=== PATIENT | male | born 1965 | race Caucasian/White ===

== ENCOUNTER 2021-08-16 09:36 | Outpatient (REF) | payer MEDICAID, SELFPAY ==
--- NOTE | ~2021-08-16 | XR_ITS ---
EXAMINATION: XR HAND, RIGHT XR HAND, LEFT CLINICAL INFORMATION: Polyarthralgia this COMPARISON: None TECHNIQUE: 3 views of each hand FINDINGS: Left hand: No fracture or dislocation. Fixed flexion at the second and third distal interphalangeal joints. There is significant associated joint space narrowing with osteophyte formation. Additional joint space narrowing seen throughout the remaining interphalangeal joints with small osteophytes. Moderate degenerative change of the first carpometacarpal joint with prominent adjacent soft tissue calcifications. Degenerative changes also noted at the triscaphe joint. No osseous erosion. Mild soft tissue swelling at the second and third digits. Right hand: No fracture or dislocation. Flexion at the third digit distal interphalangeal joint where there is narrowing and osteophyte formation. Additional narrowing throughout the interphalangeal joints with osteophytes noted. Likely chronic healed fracture at the proximal shaft of the fourth metacarpal. Degenerative change of the triscaphe joint and first carpometacarpal joint. No osseous erosions. Second digit soft tissue swelling. XR/XR hand RT min 3V IMPRESSION: Advanced arthritic changes throughout both hands as above.
--- NOTE | ~2021-08-16 | XR_ITS ---
EXAMINATION: XR HAND, RIGHT XR HAND, LEFT CLINICAL INFORMATION: Polyarthralgia this COMPARISON: None TECHNIQUE: 3 views of each hand FINDINGS: Left hand: No fracture or dislocation. Fixed flexion at the second and third distal interphalangeal joints. There is significant associated joint space narrowing with osteophyte formation. Additional joint space narrowing seen throughout the remaining interphalangeal joints with small osteophytes. Moderate degenerative change of the first carpometacarpal joint with prominent adjacent soft tissue calcifications. Degenerative changes also noted at the triscaphe joint. No osseous erosion. Mild soft tissue swelling at the second and third digits. Right hand: No fracture or dislocation. Flexion at the third digit distal interphalangeal joint where there is narrowing and osteophyte formation. Additional narrowing throughout the interphalangeal joints with osteophytes noted. Likely chronic healed fracture at the proximal shaft of the fourth metacarpal. Degenerative change of the triscaphe joint and first carpometacarpal joint. No osseous erosions. Second digit soft tissue swelling. XR/XR hand LT min 3V IMPRESSION: Advanced arthritic changes throughout both hands as above.
== END 2021-08-16 09:37 | disposition home or self-care (01) ==
LOC: HO.XRAY 09:36
PROVIDERS: Visit Provider Internal Medicine
DX: M13.0 Polyarthritis, unspecified (principal)
CPT/HCPCS: 73130

== ENCOUNTER 2023-10-17 20:44 | Emergency (ER) | payer MEDICAID, SELFPAY ==
--- NOTE | ~2023-10-17 | XR_ITS ---
EXAMINATION: CHEST 2 VIEWS CLINICAL INFORMATION: hypoxia, cough. COMPARISON: 11/07/2017. TECHNIQUE: PA and lateral views of the chest obtained. FINDINGS: Lungs well-expanded with some right-sided volume loss and chronic postinfectious/postinflammatory scarring in the right lung apex. No superimposed effusion, edema, or pneumothorax. Cardiac and mediastinal silhouettes otherwise within normal limits for size. No acute bony abnormality. XR/XR chest 2V IMPRESSION: Chronic postinfectious/postinflammatory changes in the right lung apex. No acute superimposed airspace disease.
--- NOTE | ~2023-10-17 | XR_ITS ---
EXAMINATION: XR KNEE, LEFT CLINICAL INFORMATION: Pain COMPARISON: None available. TECHNIQUE: Four views of the left knee. FINDINGS: Moderate size knee joint effusion. Tricompartmental degenerative changes are seen with loss of joint space more so in the lateral compartment. No acute fracture or dislocation. No bony destructive lesions. Extensive vascular calcification XR/XR knee LT 3V IMPRESSION: Tricompartmental degenerative changes with moderate size knee joint effusion. No acute fracture or dislocation.
[2023-10-17 21:17] VITALS: BP 104/62; PULSE 80; RESP 16; TEMP 37; O2SAT 89; BMI 23.2
[2023-10-17 22:07] LABS: Influenza A PCR NEGATIVE (Negative); Influenza B PCR NEGATIVE (Negative); Resp Syncy Virus RNA Qual PCR NEGATIVE (Negative); SARS COV2 PCR INHOUSE NEGATIVE (Negative)
== END 2023-10-18 01:22 | disposition left against medical advice (07) ==
PROVIDERS: Emergency Provider Emergency Medicine
DX: M25.562 Pain in left knee (principal); Z20.822 Contact with and (suspected) exposure to COVID-19; Z20.828 Contact with and (suspected) exposure to other viral communicable diseases
CPT/HCPCS: 0241U; 71046; 73562; 99281; 99283

== ENCOUNTER 2024-12-17 10:32 | Emergency (ER) | payer OTHER, SELFPAY ==
--- NOTE | ~2024-12-17 | XR_ITS ---
CLINICAL HISTORY: fall 3 view right shoulder Comparison: None Findings: Nondisplaced fracture involving the greater tuberosity of the right humerus. No erosions. No radiopaque foreign body. IMPRESSION: Nondisplaced right greater tuberosity fracture. No dislocation. This document has been electronically signed by: Chuck Rm MD on 12/17/2024 12:25:39
--- NOTE | ~2024-12-17 | XR_ITS ---
CLINICAL HISTORY: low O2 2 views chest Comparison: CR/SR - XR CHEST 2V - 10/17/23 22:16 EST Findings: Cardiac and mediastinal contours are normal. Mild interstitial prominence with scattered peribronchial thickening. Chronic changes of the right lung apex. No focal consolidation. No effusion. No pneumothorax. No acute osseous finding. Impression: Mild interstitial prominence with scattered peribronchial thickening. No focal consolidation. This document has been electronically signed by: Chuck Rm MD on 12/17/2024 12:25:29
--- NOTE | ~2024-12-17 | XR_ITS ---
CLINICAL HISTORY: pain s p injury 4 view right knee Comparison: None Findings: Bones intact. No dislocations. Linear calcifications along the quadriceps tendon insertion. No significant joint effusion. No radiopaque foreign body. Diffuse vascular calcification. IMPRESSION: 1. No acute findings. This document has been electronically signed by: Chuck Rm MD on 12/17/2024 12:28:53
[2024-12-17 11:32] VITALS: BP 118/60; PULSE 69; RESP 18; TEMP 36.8; O2SAT 92; BMI 25.7
--- NOTE | 2024-12-17 11:32 | ED.UPPEXIN ---
HPI - Extremity Injury (Upper) General Chief Complaint: Extremity Injury, Upper Stated Complaint: r shoulder and r knee injury Time Seen by Provider: 12/17/24 12:51 Source: patient, RN notes reviewed and old records reviewed Mode of arrival: ambulatory History of Present Illness ED Provider: Carolynn Mahmood PA-C HPI narrative: 59-year-old male no significant past medical history presenting to the ED complaining of right shoulder pain s/p mechanical slip and fall on ice 1 week ago. Reports pain with ROM/limited ROM secondary to pain. Also reports right knee pain s/p kicking carpet a few weeks ago. Is currently on methadone, last dose this morning. Denies head trauma or LOC during fall or anticoagulation use. Denies numbness, tingling, weakness, CP, neck pain Related Data Allergies Allergy/AdvReac Type Severity Reaction Status Date / Time No Known Allergies Allergy Verified 12/17/24 11:34 Review of Systems Review of Systems: Yes all other systems are reviewed and are negative Constitutional: Constitutional: Reports as per [facility] Past Medical History Attestation statement: The following information was validated with the patient. Source: old records reviewed Social History Social History Advance Directives: No Advance Directives Information Provided: Yes Physical Exam Vital Signs: Vital Signs: Last Vital Signs Temp 98.3 F 12/17/24 13:11 Pulse 69 12/17/24 13:11 Resp 18 12/17/24 13:11 BP 118/60 12/17/24 13:11 Pulse Ox 97 12/17/24 13:11 O2 Del Method Room Air 12/17/24 13:11 BMI result Body Mass Index 25.7 Const: General: cooperative, healthy appearing and no acute distress Orientation/consciousness: patient oriented x3 Limitations: no limitations HEENT: Head: Yes normal to inspection and Yes atraumatic Ears: hearing grossly normal bilaterally General nose exam: Normal external nose present Face and sinus: Yes normal facial exam Eyes: General: appearance normal, both eyes and all related structures EOM: EOMs intact bilaterally Neck: Neck: Yes normal visual inspection and Yes no meningeal signs Resp: Effort & Inspection: normal respiratory effort and no respiratory distress Auscultation: clear to auscultation bilaterally Cardio: Rate: regular rate Heart sounds: S1 normal heart sound present and S2 normal heart sound present Skin: Rashes: no rashes Wounds: no wounds Neuro: General: patient oriented x3, tone normal and no meningeal signs Cranial nerves: Yes CN's II-XII intact bilaterally Gait exam (Neuro): Normal gait present Extrem: Other: Right shoulder without noted deformity. + tender to palpation greatest to anterior aspect. ROM limited secondary to pain. Neurovascularly intact distally. Right knee without noted deformity. Mildly tender. Full range of motion intact. General: Yes normal to inspection Course Course Course Narrative: This is a Rapid Medical Exam performed in triage by Carolynn Mahmood PA-C. Full HPI, ROS and PE to be performed by primary ED provider. 59-year-old male presenting to the ED c/o R shoulder pain s/p mechanical trip & fall on ice 1 week ago. Admits to taking Methadone daily, last dose this morning. Also reports to kicking carpet a few weeks ago and right knee pain PE: O2 92% on RA, right shoulder with mild tenderness, limited ROM secondary to pain, neurovascularly intact Plan: X-rays 1254--XR knee RT 3V IMPRESSION: 1. No acute findings. XR shoulder RT min 2V IMPRESSION: Nondisplaced right greater tuberosity fracture. No dislocation. > sling applied. Will need to follow up with Orthopedics XR chest 2V Impression: Mild interstitial prominence with scattered peribronchial thickening. No focal consolidation. Results discussed with patient including worrisome signs and symptoms and strict return precautions, and when to return to the emergency department. They verbalized understanding and feel safe for discharge at this time. Medical Decision Making Medical Decision Making [facility] Narrative: 59-year-old male no significant past medical history presenting to the ED complaining of right shoulder pain s/p mechanical slip and fall on ice 1 week ago. On exam vital signs stable, NAD, nontoxic appearing, physical exam as noted above. Concern for fracture vs strain/sprain. Low suspicion for ACS, PE, pneumonia Plan: X-rays Please refer to course for remaining clinical decision making, interpretation of labs/imaging results, and discussions with consultants and/or family members. Differential Diagnosis Differential Diagnoses: The differential diagnosis associated with the presentation includes As above Admission/Observation Consideration of admission/observation: Escalation of care including admission/observation considered Lab Data [facility] Lab Attestation statement: I reviewed the patient's lab results. Independent Interpretation I performed an independent interpretation of an: Plain X-Ray Radiology Impression Discussion of test interpretation with radiology: I have reviewed the radiologist's reading. External Record Review External record reviewed: Inpatient record, Office record, Outpatient record, Prior outpatient labs, Prior outpatient radiology, Primary care record and Outside ED record Tests considered The following testing was considered but not selected: As above Prescription Management I considered prescription management with: Pain Medication Chronic Conditions Patient?s care impacted by: Other Social Determinants Patient?s care significantly limited by Social Determinants of Health including: Other Social Determinant of Health Procedures Orthopedic Splinting/Casting Injury #1: Side: right Upper Extremity Injury Location: shoulder Upper Extremity Immobilizer: sling/shoulder immobilizer Discharge Plan Discharge Clinical Impression: Fracture of greater tuberosity of humerus Patient Disposition: Home, Self-Care Instructions: Proximal Humerus Fracture (ED) Additional Instructions: You have a fracture of your greater tuberosity of your right shoulder Please wear sling at all times, you may only take off to shower and sleep You need to follow-up with ad operations specialist in 1 week, please call to make an appointment Ice Take Tylenol and ibuprofen for pain If pain persists or worsens/becomes unbearable, you have numbness or weakness to extremity return to the ED Ref[place]: [facility] [place] Group] - 1 week Interventions: ED Discharge Assessment Last Done: 12/17/24 13:11 Discharge Date/Time: 12/17/24 13:12 Print Language: Tunisian
[2024-12-17 12:58] VITALS: O2SAT 97
[2024-12-17 13:11] VITALS: BP 118/60; PULSE 69; RESP 18; TEMP 36.8; O2SAT 97
== END 2024-12-17 13:12 | disposition home or self-care (01) ==
LOC: HO.ED 13:11
PROVIDERS: Emergency Provider Emergency Medicine
DX: S42.254A Nondisplaced fracture of greater tuberosity of right humerus, initial encounter for closed fracture (principal); W00.0XXA Fall on same level due to ice and snow, initial encounter; M25.511 Pain in right shoulder; Y93.89 Activity, other specified; Y92.410 Unspecified street and highway as the place of occurrence of the external cause; Y99.9 Unspecified external cause status
CPT/HCPCS: 71046; 73030; 73562; 99282; 99283

== ENCOUNTER → 2024-12-17 11:33 | Outpatient (BNV) | payer MEDICAID, SELFPAY | PROVIDERS: Visit Provider Radiology Vascular & Interventional Radiology | DX: R09.02 Hypoxemia (principal); S42.254A Nondisplaced fracture of greater tuberosity of right humerus, initial encounter for closed fracture; M25.561 Pain in right knee | CPT/HCPCS: 71046; 73030; 73562 ==

== ENCOUNTER 2025-03-28 16:57 | Inpatient (IN) | payer OTHER, SELFPAY ==
--- NOTE | ~2025-03-28 | CT_ITS ---
CLINICAL HISTORY: sob CT angiography chest with contrast. With MIP MPR Postprocessing. Comparison: Chest x-ray from 03/28/2025. Findings: No central pulmonary embolism. Mediastinal and hilar lymph nodes are nonspecific and may be reactive. Left paratracheal lymph node measures 1.1 cm short axis (image number 50 of series 6). No aortic dissection accounting for artifacts in this PE study. Bilateral pulmonary opacities are multifocal and nonspecific. Differential considerations include pneumonitis and multifocal pneumonia. Consolidation measures up to 4 cm selectively in the posterior basal segment of the right lower lobe. No pneumothorax accounting for severe emphysematous changes of the right lung apex. Additional emphysematous changes are mild bilateral. No pleural effusion. Degenerative changes include the imaged shoulders and imaged spine. Bridging osteophytes are multifocal. Mild distention of the partially imaged gallbladder. Small trace hiatal hernia. IMPRESSION: 1. Multifocal airspace disease redemonstrated and concerning for multifocal pneumonia. Recommend attention on follow-up to ensure resolution. 2. Mediastinal and hilar lymphadenopathy is nonspecific and may be reactive. Recommend 3 to six-month follow-up to ensure resolution. 3. No central pulmonary embolism. This document has been electronically signed by: Ronnie Gaines MD on 03/28/2025 20:45:09
--- NOTE | ~2025-03-28 | XR_ITS ---
CLINICAL HISTORY: Pneumonia? 1 view chest x-ray Comparison: Chest x-ray from 12/17/2024. Findings: Mild bibasilar atelectasis/pneumonitis, right worse than left. Pneumonia is also considered given right infrahilar opacities. No pneumothorax or pleural effusion in this one view study. Mild emphysematous changes are redemonstrated. Imaged mediastinum and imaged osseous structures appear unchanged. IMPRESSION: New pulmonary opacities concerning for pneumonitis/pneumonia, particularly in the right lung. Recommend attention on follow-up to ensure resolution. This document has been electronically signed by: Ronnie Gianes MD on 03/28/2025 19:10:55
[2025-03-28 18:03] VITALS: BP 128/69; PULSE 63; RESP 16; TEMP 36.8; O2SAT 91; BMI 25.2
--- NOTE | 2025-03-28 18:15 | ED_ITS ---
HPI - Extremity Problem General Chief complaint: Extremity Injury, Upper Stated complaint: ?Infected finger Time Seen by Provider: 03/28/25 19:16 History of Present Illness HPI Narrative: Patient is a 59-year-old male presents today with a having an inflamed left middle finger to the more thenar aspect there is a lesion there. Patient claims he had had this on other fingers before. There is no fever no chills. He did have some coughing. Denies having any chest pain or shortness of breath. Labs ordered at triage including a troponin and a BNP because patient had a low oxygenation about 91%. He admits to previously using IV drugs but over 16 years ago. Currently does not smoke. Does not have a history of diabetes hypertension high cholesterol. Never had a heart attack in the past. Related Data Allergies Allergy/AdvReac Type Severity Reaction Status Date / Time No Known Allergies Allergy Verified 03/28/25 18:04 Review of Systems 2 Review of Systems: No fever no chills no chest pain Yes all other systems are reviewed and are negative [facility] Past Medical History Attestation statement: The following information was validated with the patient. Social History Social History Advance Directives: No Advance Directives Information Provided: No Physical Exam 2 Vital Signs: Vital Signs: Last Vital Signs Temp 98.3 F 03/28/25 18:03 Pulse 78 03/28/25 19:35 Resp 24 H 03/28/25 19:35 BP 105/86 03/28/25 19:35 Pulse Ox 94 03/28/25 20:24 O2 Del Method Nasal Cannula 03/28/25 20:24 O2 Flow Rate 2 03/28/25 20:24 BMI result Body Mass Index 25.2 Appearance: Alert. Oriented X3. No acute distress. Eyes: Pupils equal, round and reactive to light. ENT: Pharynx normal. Neck: Normal inspection. Neck supple. No lymph nodes noted. No crepitus CVS: Normal heart rate and rhythm. Pulses normal. Normal S1 and S2 Respiratory: No respiratory distress. Breath sounds normal. No Wheezing. No rales Abdomen: Soft and nontender. No rigidity. No distention. good BS x4 Skin: Skin warm and dry. Normal skin color. Normal skin turgor. Extremities: No lower extremity edema. Neurovascular intact to all extremities. No Lacerations. No Rash. There is a abscess on the left middle finger on the thenar aspect distally near the distal IP joint. Approximately 2 cm x 1 cm in size. Fluctuant. There is no pain on palpation of the flexor sheath. Patient is able to bend his proximal IP joint without any issues. There is no sausage finger. There is no pain on passive motion. Neuro: Oriented X 3. No motor deficit. No sensory deficit. Moving all extermities. No slurred speech Course Course Course Narrative: RME: 59-year-old male presents to ED for left middle finger redness and swelling. History for exam indicated paronychia. Upon triage patient's O2 sat 91% without any distress. Patient denies a history of asthma or smoking. We will do chest x-ray and labs. Medications Administered Discontinued Medications Generic Name Dose Route Start Last Admin Trade Name Freq PRN Reason Stop Dose Admin Ceftriaxone Sodium 1 gm 03/28/25 19:43 03/28/25 20:23 Ceftriaxone Sodium 1 Gm Vial IVPUSH 03/28/25 19:44 1 gm ONCE ONE Administration Medical Decision Making Medical Decision Making MDM Narrative: Patient's O2 sat was 91% on room air at triage. Labs ordered. Including a troponin. Unfortunately came back at over 300. Patient denies having any chest pain or shortness of breath. Also noted to have a BNP of 775. Patient's chest x-ray showed a possible pneumonia at the right base. On further questioning patient does admit to small amount of coughing. A COVID flu RSV was sent. Lactate and culture was sent. We will get a CTA of the chest to look for PE versus pneumonia. A 2nd troponin was ordered. I repeated patient's EKG. EKG is limited by artifact. Bed patient grossly is in a sinus pattern heart rate was 60 NV QRS was within normal limits QTC is prolonged. is no acute ST segment elevation there is no gross ST segment elevation noted. Currently has 0 chest pain. Will send patient to the CT. CTA of the chest by my interpretation showed pneumonia at the right base. Radiology's interpretation of the CTA showed multifocal infiltrate. There is no PE noted. Likely the cause of patient's hypoxia. Antibiotics started. Patient will require admission for further evaluation. Cardiology team consulted felt comfortable with plan of admission. Patient's lactate less than 2 there is no evidence for severe sepsis. Patient has elevated BNP of 775 question CHF after discussion with Cardiology a dose of Lasix was given Differential Diagnosis Differential Diagnoses: The differential diagnosis associated with the presentation includes Admission/Observation Consideration of admission/observation: Escalation of care including admission/observation considered Consult Healthcare Provider Management of the patient was discussed with: Hospitalist and Hand Bobbin Cleaner (Cardiology) Lab Data MDM Lab Attestation statement: I reviewed the patient's lab results. 03/28/25 18:31 03/28/25 18:31 Labs: Lab Results 03/28/25 03/28/25 Range/Units 18:31 19:51 WBC 10.6 (4.8-10.8) X10*3/uL RBC 4.24 L (4.60-5.80) X10*6/uL Hgb 14.1 (14.0-18.0) g/dl Hct 42.0 (42.0-52.0) % MCV 99.1 H (80.0-98.0) fL MCH 33.3 H (27.0-33.0) pg MCHC 33.6 (31.0-36.0) g/dl RDW 12.4 (11.0-16.0) % Plt Count 166 (160-400) X10*3/uL MPV 9.9 (9.4-12.4) fL Immature Gran % (Auto) 0.8 H (0.0-0.4) % Neut % (Auto) 79.4 H (45-73) % Lymph % (Auto) 10.1 L (20-40) % [place] % (Auto) 9.3 (2-11) % Eos % (Auto) 0.1 (0-4) % Baso % (Auto) 0.3 (0-2) % Lymph # (Auto) 1.1 L (1.2-4.9) X10*3/uL [place] # (Auto) 1.0 (0.1-1.2) X10*3/uL Eos # (Auto) 0.0 (0.0-0.4) X10*3/uL Baso # (Auto) 0.0 (0.0-0.2) X10*3/uL Abs Immat Gran (auto) 0.08 H (0.00-0.03) X10*3/uL Absolute Neuts (auto) 8.4 H (2.0-8.3) x10*3/uL Absolute Nucleated RBC 0.000 (0.0-0.012) X10*3/uL Nucleated RBC % (auto) 0.0 (0.0-0.2) /100WBC PT 13.6 H (10.9-12.4) SEC INR 1.2 H (0.9-1.1) APTT 28.9 (26.0-36.8) SEC Sodium 139 (135-145) mmol/L Potassium 3.2 L (3.3-5.1) mmol/L Chloride 101 (96-108) mmol/L Carbon Dioxide 28 (22-29) mmol/L Anion Gap 13 (12-20) BUN 17 H (9-16) mg/dL Creatinine 0.67 (0.5-1.4) mg/dL Estim Creat Clear Calc 96.9 Estimated GFR > 60 Random Glucose 88 (60-115) mg/dL Lactic Acid 2.3 H* (0.5-2.0) mmol/L Calcium 8.8 (8.4-10.2) mg/dL Total Bilirubin 2.2 H (0.0-1.0) mg/dL AST 49 H (5-37) U/L ALT 40 (0-40) U/L Alkaline Phosphatase 78 (39-117) U/L Total Creatine Kinase 192 H 196 H (38-174) U/L Troponin I High Sens 328.8 H* 355.7 H* (<3.5-35.0) ng/L B-Natriuretic Peptide 775 H (<100) pg/mL Total Protein 8.8 H (6.5-8.0) g/dL Albumin 3.5 (3.5-5.0) g/dL Independent Interpretation I performed an independent interpretation of an: EKG (My interpretation of patient's 3 EKG showed a sinus rhythm heart rate was approximately 70 NV QRS was normal QTC was prolonged in all 3 there is no acute ST segment elevation is grossly unchanged.) Critical Care Time Critical Care Time Critical Care Time: Yes Total Critical Care Time: 40 Attestation: I have personally provided 40 minutes of critical care time exclusive of time spent on separately billable procedures. ?Time includes review of lab data, radiology results, discussion with consultants, and monitoring for potential decompensation. ?Interventions were performed as documented above Discharge Plan Discharge Clinical Impression: Pneumonia, Congestive heart failure Patient Disposition: Admitted As Inpatient Print Language: Serbian
--- NOTE | 2025-03-28 18:16 | ECG_ITS ---
Test Reason : 02 saturation 91% Blood Pressure : */* mmHG Vent. Rate : 60 BPM Atrial Rate : 60 BPM P-R Int : 184 ms QRS Dur : 86 ms QT Int : 550 ms P-R-T Axes : 7 12 7 degrees QTcB Int : 550 ms Normal sinus rhythm Prolonged QT Abnormal ECG When compared with ECG of 17-Feb-2019 14:20, Criteria for Inferior infarct are no longer Present QT has lengthened Referred By: Guerrero Madison Electronically Signed By: ARTHUR MACARIO MD
[2025-03-28 18:46] LABS: MANUAL DIFF FLAG NO
[2025-03-28 18:49] LABS: Basophils Percent Auto 0.3 % (0-2); Eosinophils Percent Auto 0.1 % (0-4); Hemoglobin 14.1 g/dl (14.0-18.0); Imm Gran Abs Auto 0.08 X10*3/uL (0.00-0.03); Imm Gran Pct Auto 0.8 % (0.0-0.4); Lymphocytes Absolute Auto 1.1 X10*3/uL (1.2-4.9); Lymphocytes Percent Auto 10.1 % (20-40); Mean Corpuscular HGB Conc 33.6 g/dl (31.0-36.0); Mean Corpuscular Hemoglobin 33.3 pg (27.0-33.0); Mean Corpuscular Volume 99.1 fL (80.0-98.0); Mean Platelet Volume 9.9 fL (9.4-12.4); Monocytes Percent Auto 9.3 % (2-11); Neutrophils Absolute Auto 8.4 x10*3/uL (2.0-8.3); Neutrophils Percent Auto 79.4 % (45-73); Platelet Count 166 X10*3/uL (160-400); Red Blood Count 4.24 X10*6/uL (4.60-5.80); Red Cell Distribution Width 12.4 % (11.0-16.0); White Blood Count 10.6 X10*3/uL (4.8-10.8)
[2025-03-28 18:57] LABS: INTERNATIONAL NORM RATIO 1.2 (0.9-1.1); Prothrombin Time 13.6 SEC (10.9-12.4)
[2025-03-28 18:59] LABS: Partial Thromboplastin Time 28.9 SEC (26.0-36.8)
[2025-03-28 19:02] LABS: Alanine Aminotransferase 40 U/L (0-40); Albumin Level 3.5 g/dL (3.5-5.0); Alkaline Phosphatase 78 U/L (39-117); Anion Gap 13 (12-20); Aspartate Amino Transferase 49 U/L (5-37); Bilirubin Total 2.2 mg/dL (0.0-1.0); Blood Urea Nitrogen 17 mg/dL (9-16); Calcium 8.8 mg/dL (8.4-10.2); Carbon Dioxide 28 mmol/L (22-29); Chloride 101 mmol/L (96-108); Creatinine Clr Calc Pharmacy 96.9; Estimated Glomerular Filt Rate > 60; Glucose Random 88 mg/dL (60-115); Potassium 3.2 mmol/L (3.3-5.1); Sodium 139 mmol/L (135-145); Total Protein 8.8 g/dL (6.5-8.0)
[2025-03-28 19:08] LABS: B Type Natriuretic Peptide 775 pg/mL (<100)
--- OUTSIDE RECORDS SUMMARY | 2025-03-28 19:10 | XMS_ITS | Encounter Summary ---
Author Organization [employer] Address [address] [place] [address] Care Team Providers Care Linen Supervisor Name Role Phone Unavailable Primary Care Provider Unavailabl e Encounter Details Date Type Department Care Team (Latest Contact Info) Description 03/28/2025 Travel Social History Tobacco Use Types Packs/Day Years Used Date Smoking Tobacco: Never Assessed Sex and Gender Information Value Date Recorded Sex Assigned at Male 08/18/2022 10:21 AM EDT Legal Sex Male 10:21 AM EDT Gender Identity Male 08/18/2022 10:21 AM EDT Sexual Orientation Choose not to disclose 2021 10:21 AM EDT documented as of this encounter Plan of Treatment Not on file documented as of this encounter Visit Diagnoses Not on filedocumented in this encounter
[2025-03-28 19:12] LABS: Troponin-I High Sensitivity 328.8 ng/L (<3.5-35.0)
[2025-03-28 19:35] VITALS: BP 105/86; PULSE 78; RESP 24; O2SAT 96
--- NOTE | 2025-03-28 19:41 | ECG_ITS ---
Test Reason : abnormal labs Blood Pressure : */* mmHG Vent. Rate : 71 BPM Atrial Rate : * BPM P-R Int : * ms QRS Dur : 86 ms QT Int : 484 ms P-R-T Axes : * 20 17 degrees QTcB Int : 525 ms Poor data quality Normal sinus rhythm Nonspecific ST abnormality Prolonged QT Abnormal ECG When compared with ECG of 28-Mar-2025 18:36, No significant changes seen Referred By: Ronel Abraham Electronically Signed By: ARTHUR MACARIO MD
--- NOTE | 2025-03-28 19:41 | ECG_ITS ---
Test Reason : SOB Blood Pressure : */* mmHG Vent. Rate : 67 BPM Atrial Rate : 67 BPM P-R Int : 178 ms QRS Dur : 84 ms QT Int : 522 ms P-R-T Axes : -2 13 5 degrees QTcB Int : 551 ms Normal sinus rhythm Prolonged QT Abnormal ECG When compared with ECG of 28-Mar-2025 19:48, No significant changes seen Referred By: Sridevi Newberry Electronically Signed By: ARTHUR MACARIO MD
--- NOTE | 2025-03-28 20:00 | PC.NURSE ---
pt ambulatory with steady gait from wr to ed1 reporting elevated trops. roa md at bedside on arrival. 20g RAC and 20g L hand placed. labs and repeat ekg obtained. pt denies cp/sob at this time, reports had cp/sob approx 1800 yesterday and felt it wasnt necessary to be seen for it unsure duration of sx. pt is axox4 resp even and unlabored, awaiting ct scan.
[2025-03-28 20:13] LABS: Lactic Acid 2.3 mmol/L (0.5-2.0)
[2025-03-28 20:20] LABS: Troponin-I High Sensitivity 355.7 ng/L (<3.5-35.0)
[2025-03-28] MEDS: cefTRIAXone sodium 1 GM VIAL IVPUSH (20:23)
[2025-03-28 20:24] VITALS: O2SAT 89; O2SAT 94
--- NOTE | 2025-03-28 20:25 | PC.NURSE ---
pt was in ct scan delay in giving abx.
--- NOTE | 2025-03-28 20:33 | PC.NURSE ---
upon return from ct scan sats 88% on RA, placed on 2L NC with improvement. pt reports mild chest discomfort. MD aware. repeat ekg ordered.
[2025-03-28 20:54] LABS: Influenza A PCR NEGATIVE (Negative); Influenza B PCR NEGATIVE (Negative); Resp Syncy Virus RNA Qual PCR NEGATIVE (Negative); SARS COV2 PCR INHOUSE NEGATIVE (Negative)
--- NOTE | 2025-03-28 20:55 | PM.IMHP ---
History of Present Illness Date of Service: 03/28/25 Attending physician on admission: Sridevi Newberry Chief Complaint: Left middle finger swelling Monty Mendoza is a 59 years old man with past medical history significant for substance abuse on methadone presents to the emergency department complaining of left middle finger swelling and pain that started her week ago. He denied any trauma. He also complained of worsening shortness of breath over the last week associated with dry cough. He denied any nasal congestion, headache, fever, chills, abdominal pain, nausea, vomiting, diarrhea or dizziness. He drinks alcohol every day. Last alcoholic drink was today. He denied tobacco smoking. He does not use illicit drugs anymore. He denied history of hypertension, diabetes mellitus, heart disease or renal disease. In the ED, he was found to have oxygen saturation 89 % on room air. He is currently requiring 2 L/min supplemental oxygen via nasal cannula. There is no leukocytosis. CBC is normal. There is mild hypokalemia of 3.2 but no other electrolyte imbalances. BUN 17 and creatinine 0.67. Troponin is elevated at 328.8 --> 355.7 and BNP 775. Bilirubin is 2.2, AST 49, ALT 40 alk-phos 78. ETOH level 289. Viral testing for COVID-19, influenza and RSV is negative. CXR showed new pulmonary opacity concerning for pneumonitis/known ammonia particularly in the right lung. Chest CTA showed multifocal airspace disease concerning for multifocal pneumonia, mediastinal lymphadenopathy and no central pulmonary embolism. ECG showed normal sinus rhythm, prolonged QT and no ischemic changes. ED tx: Azithromycin 500 mg p.o. ceftriaxone 1 g IV, Vangie 40 mg IV Review of Systems Review of Systems: All 12 systems were reviewed and normal except as noted in HPI. [facility] Social History Advance Directives: No Advance Directives Information Provided: No Meds Allergies Allergy/AdvReac Type Severity Reaction Status Date / Time No Known Allergies Allergy Verified 03/28/25 18:04 Active Medications: Current Medications Acetaminophen (Acetaminophen 325 Mg Tablet) 975 mg PO Q6H PRN PRN Reason: Pain, Mild 1-3,fever,headache Enoxaparin Sodium (Enoxaparin Sodium 40 Mg/0.4 Ml Syringe) 40 mg SUBCUT Q24H NAKUL Sodium Chloride (0.9 % Sodium Chloride Flush 3 Ml Syringe) 3 ml IVFLUSH QSHIFT [facility] Home Medications ?Medication ?Instructions ?Recorded ?Confirmed ?Last Taken ?Type methadone 10 mg tablet 75 mg PO DAILY 03/28/25 03/28/25 History Physical Exam Vital Signs and Narrative: Vital Signs: Last Vital Signs Temp 98.3 F 03/28/25 18:03 Pulse 78 03/28/25 19:35 Resp 24 H 03/28/25 19:35 BP 105/86 03/28/25 19:35 Pulse Ox 94 03/28/25 20:24 O2 Del Method Nasal Cannula 03/28/25 20:24 O2 Flow Rate 2 03/28/25 20:24 BMI result Body Mass Index 25.2 Constitutional - Awake and Alert, No apparent distress HEENT - PER, EOMI. Icteric sclerae. Dry oral mucosa. Heart - S1S2, RRR, No murmurs. Lungs - Normal lung expansion, Normal respiratory effort, No respiratory distress. Tachypneic. Bilateral end expiratory wheezes. No crackles. Abdomen - NT / ND; +BS; No rebound or guarding Extremities - No edema to the lower extremities. Left hand: Middle finger: DIP medial aspect with erythematous and edematous area with necrotic region. Musculoskeletal - Normal inspection, normal ROM Skin - Warm/Dry. No pallor. No jaundice. Neurological - Alert & oriented x3. No focal weakness. Normal speech. Psychological - Depressed affect Results Labs 03/28/25 18:31 03/28/25 18:31 Labs: Laboratory Results - last 24 hr 03/28/25 03/28/25 18:31 19:51 MCV 99.1 H MCH 33.3 H MCHC 33.6 RDW 12.4 Plt Count 166 MPV 9.9 Immature Gran % (Auto) 0.8 H Neut % (Auto) 79.4 H Lymph % (Auto) 10.1 L [place] % (Auto) 9.3 Eos % (Auto) 0.1 Baso % (Auto) 0.3 Lymph # (Auto) 1.1 L [place] # (Auto) 1.0 Eos # (Auto) 0.0 Baso # (Auto) 0.0 Abs Immat Gran (auto) 0.08 H Absolute Neuts (auto) 8.4 H Absolute Nucleated RBC 0.000 Nucleated RBC % (auto) 0.0 PT 13.6 H INR 1.2 H APTT 28.9 Anion Gap 13 Estim Creat Clear Calc 96.9 Estimated GFR > 60 Random Glucose 88 Lactic Acid 2.3 H* Calcium 8.8 Total Bilirubin 2.2 H AST 49 H ALT 40 Alkaline Phosphatase 78 Total Creatine Kinase 192 H 196 H Troponin I High Sens 328.8 H* 355.7 H* B-Natriuretic Peptide 775 H Total Protein 8.8 H Albumin 3.5 Assessment and Plan (1) Abscess of left middle finger: Status: Acute (2) Multifocal pneumonia: Status: Acute (3) Bronchospasm: Status: Acute (4) Methadone use: Status: Acute (5) Alcohol abuse: Status: Acute (6) Hypokalemia: Status: Acute (7) Prolonged QT interval: Status: Acute Plan Monty Mendoza is a 59 y/o man admitted with: Hypoxic respiratory failure secondary to multifocal pneumonia. Admit to hospitalist service. Pulse oximetry. Telemetry. Continue supplemental O2 to keep O2 sats > 90%. Antibiotic therapy with Zosyn. Start treatment with bronchodilator therapy and IV steroids. Elevated BNP and troponin, possible secondary to above. ?CHF. No chest pain. Lasix given in the ED. Check TTE. Recheck BNP in 2 days. Recheck troponin. Cardiology consult. Hypokalemia, likely due to Lasix IV. Replete as needed. Continue to monitor. Left middle finger abscess. D&C per ED provider. Apply warm compresses. Add treatment with doxycycline 100 mg PO bid for MRSA coverage. History of opiate disorder. On methadone 75 mg PO daily. Prolonged QT, QTc 551, likely secondary to methadone use. Check magnesium level. Recheck ECG. Telemetry. Alcohol intoxication. ETOH level 289. CIWA. Thiamine, folic acid and multivitamins. Patient was advised to abstain from alcohol consumption. Code status: Full DVT prophylaxis: Lovenox. Patient will need hospitalization for at least 2 midnights for hypoxic respiratory treatment with supplemental oxygen, IV antibiotics and bronchodilator therapy. Quality Stroke Does the patient have a stroke diagnosis?: No VTE Prior VTE?: No VTE Risk Level:: Medical - moderate - high VTE Device Contraindication: Treatment Not Indicated VTE Drug Contraindication: N/A - Med Ordered
[2025-03-28 21:11] LABS: Magnesium 1.9 mg/dL (1.6-2.6)
[2025-03-28] MEDS: Azithromycin 500 MG TABLET PO (21:19)
[2025-03-28] MEDS: Potassium Chloride Packet 20 MEQ PACKET 40 MEQ PO (21:19)
[2025-03-28 21:20] VITALS: BP 166/78
[2025-03-28] MEDS: Furosemide 40 MG/4 ML VIAL IVPUSH (21:20)
[2025-03-28] MEDS: Enoxaparin Sodium 40 MG/0.4 ML SYRINGE SUBCUT (21:20)
[2025-03-28] MEDS: Lidocaine HCl 1 % MPF 5 ML VIAL SUBCUT (21:28)
[2025-03-28] MEDS: Albuterol/Iprat 2.5/0.5MG 3 ML AMPUL.NEB INHALE (21:34)
[2025-03-28 21:36] VITALS: PULSE 83; RESP 18; O2SAT 92
--- NOTE | 2025-03-28 21:47 | PHA.MEDREC ---
Addendum entered by [facility] [place] [facility] 03/28/25 21:55: MED REC REVIEWED Original Note: Pharmacy Consult ? Medication Reconciliation Pharmacy has completed the medication reconciliation. Patient states he only takes Methadone [address] [facility] in [place], last dose was today
[2025-03-28 21:56] LABS: Reflex Lactate? Lactic Acid Added
[2025-03-28] MEDS: Thiamine HCL 100 MG TABLET PO (22:14)
[2025-03-28] MEDS: Piperacillin Sodium/Tazobactam 3.375 GM in 0.9 % Sodium Chloride 50 ML IV (22:14)
[2025-03-28] MEDS: Doxycycline Monohydrate 100 MG CAPSULE PO (22:20)
--- NOTE | 2025-03-28 22:24 | PC.NURSE ---
ciwa 4 but pt MD kael notified.
[2025-03-28 22:28] LABS: ~Lactic Acid-LAB USE ONLY 2.8 mmol/L (0.5-2.0)
[2025-03-28] MEDS: diazePAM 10 MG/2 ML CARTRIDGE 5 MG IVPUSH (22:57)
[2025-03-28 23:02] VITALS: BP 148/82; PULSE 84; RESP 20; TEMP 37.2; O2SAT 92
--- NOTE | 2025-03-28 23:05 | PC.NURSE ---
upon entering room pt is vomiting. held po ativan. notified. ordered ivp valium given per mar with effect. pt states he was not being honest about alcohol intake.
[2025-03-29] VITALS (11 sets, daily range): BP systolic 115–161; BP diastolic 59–87; PULSE 65–81; RESP 14–18; TEMP 36.6–37.3; O2SAT 90–98; BMI 25.2
[2025-03-29 00:10] LABS: Reflex Lactate? 2 Y
[2025-03-29 01:10] LABS: ~Lactic Acid-LAB USE ONLY 1.4 mmol/L (0.5-2.0)
[2025-03-29] MEDS: Piperacillin Sodium/Tazobactam 3.375 GM in 0.9 % Sodium Chloride 50 ML IV ×4 (04:46→22:09)
[2025-03-29 05:27] LABS: Basophils Percent Auto 0.1 % (0-2); Hematocrit 39.1 % (42.0-52.0); Hemoglobin 13.4 g/dl (14.0-18.0); Imm Gran Abs Auto 0.04 X10*3/uL (0.00-0.03); Imm Gran Pct Auto 0.5 % (0.0-0.4); Lymphocytes Absolute Auto 0.3 X10*3/uL (1.2-4.9); Lymphocytes Percent Auto 3.1 % (20-40); MANUAL DIFF FLAG SCAN; Mean Corpuscular HGB Conc 34.3 g/dl (31.0-36.0); Mean Corpuscular Hemoglobin 33.8 pg (27.0-33.0); Mean Corpuscular Volume 98.5 fL (80.0-98.0); Monocytes Absolute Auto 0.2 X10*3/uL (0.1-1.2); Monocytes Percent Auto 2.7 % (2-11); Neutrophils Absolute Auto 7.5 x10*3/uL (2.0-8.3); Neutrophils Percent Auto 93.6 % (45-73); Platelet Count 179 X10*3/uL (160-400); Red Blood Count 3.97 X10*6/uL (4.60-5.80); Red Cell Distribution Width 12.2 % (11.0-16.0); SCAN SMEAR FLAG 1; White Blood Count 8.1 X10*3/uL (4.8-10.8)
[2025-03-29 05:50] LABS: Anion Gap 16 (12-20); Blood Urea Nitrogen 19 mg/dL (9-16); Calcium 8.7 mg/dL (8.4-10.2); Carbon Dioxide 27 mmol/L (22-29); Chloride 98 mmol/L (96-108); Creatinine Clr Calc Pharmacy 91.4; Estimated Glomerular Filt Rate > 60; Glucose Random 116 mg/dL (60-115); Potassium 3.2 mmol/L (3.3-5.1); Sodium 138 mmol/L (135-145)
--- NOTE | 2025-03-29 06:00 | ECG_ITS ---
Test Reason : prolonged qt Blood Pressure : */* mmHG Vent. Rate : 63 BPM Atrial Rate : 63 BPM P-R Int : 180 ms QRS Dur : 88 ms QT Int : 500 ms P-R-T Axes : -1 0 3 degrees QTcB Int : 511 ms Normal sinus rhythm Possible Inferior infarct , age undetermined Prolonged QT Abnormal ECG When compared with ECG of 28-Mar-2025 20:40, No significant change was found Referred By: Sridevi Newberry Electronically Signed By: ARTHUR MACARIO MD
[2025-03-29 06:01] LABS: SLIDE REVIEW VERIFIED
[2025-03-29 06:04] LABS: Troponin-I High Sensitivity 250.2 ng/L (<3.5-35.0)
--- NOTE | 2025-03-29 07:33 | PC.NURSE ---
Assumed care of pt approx 0700, A/Ox 3 with no apparent s/s of distress. VSS. Up and eating breakfast as side of bed.
[2025-03-29] MEDS: Thiamine HCL 100 MG TABLET PO (07:56)
[2025-03-29] MEDS: Potassium Chloride Packet 20 MEQ PACKET 40 MEQ PO ×2 (07:56→10:43)
[2025-03-29] MEDS: methylPREDNISolone Sod Succ 40 MG/ML VIAL IVPUSH (07:56)
[2025-03-29] MEDS: Albuterol/Iprat 2.5/0.5MG 3 ML AMPUL.NEB INHALE ×4 (08:06→19:23)
--- NOTE | 2025-03-29 09:39 | CA_ITS ---
Transthoracic Echocardiogram Patient (Last, First, Middle): Monty Mendoza, Gender: Male Date of : 1965 Age: 59 Procedure Date: 03/29/2025 Procedure Type: Transthoracic Echocardiogram Location: ER Height: 162.56 cm Weight: 66.68 kg BSA: 1.72 m2 Heart Rate: 67 bpm BP: 149 / 82 mmHg Sliver Chopper: UMESH/CATHY Referring MD: Pan Rosales MD Rig Builder: Pan Rosales MD Symptoms: Elevated BNP and troponins Study Quality: Adequate ECG Rhythm: Sinus Conclusions: - 1. Low normal LV ejection fraction 50-55% with impaired relaxation filling pattern 2. Moderate to severe aortic stenosis 3. Mild mitral regurgitation noted 4. Upper limits of normal ascending aortic size 5. No gross bradycardia effusion Findings Procedure Information Contrast agent, definity, is being given per protocol without apparent complications. Left Ventricle Normal left ventricular cavity size. There is normal left ventricular wall thickness. The left ventricular systolic function is low normal. The visually estimated ejection fraction is between 50-55%. Spectral Doppler is indicative of an impaired relaxation filling pattern. E/E prime ratio is between 8 and 15 consistent with indeterminate filling pressures. Right Ventricle Mildly increased right ventricular cavity size. There is normal right ventricular systolic function. Atria The left atrium is likely dilated. There is no evidence of interatrial shunt. The right atrium is normal in size. Aortic Valve There is moderate calcification of the aortic valve. There is moderate thickening of the aortic valve. There is moderate to severe aortic valve stenosis. The peak aortic gradient is 42 mmHg.The mean gradient is 25 mmHg. The aortic valve area is 1.06 cm2. There is trace (trivial) aortic valve regurgitation. Mitral Valve There is mild posterior mitral leaflet thickening. There is mild posterior mitral annular calcification. There is mild mitral valve regurgitation. There is no mitral valve stenosis. Pulmonic Valve The pulmonic valve was not well visualized. Tricuspid Valve Likely normal tricuspid valve structure and function. Tricuspid regurgitation envelope is inadequate for calculation of right ventricular systolic pressure. Normal right atrial pressure. Great Vessels The pulmonary artery was not well visualized. Small plaque is seen in the sino tubular ridge. Venous The inferior vena cava is normal in size. Pericardium/Pleural There is no evidence of pericardial effusion. Prior Study Comparison No prior study available for comparison. Measurements 2D Linear Measurements IVSd: 0.90 0.6-0.9/0.6-1.0 cm LVIDd: 4.86 3.9-5.3/4.2-5.9 cm LVIDd Index: 2.83 2.4-3.2/2.2-3.1 cm/m2 LVIDs: 3.73 2.0-3.6 cm LVPWd: 1.01 0.7-1.1 cm LA Diam: 3.80 2.7-3.8/3.0-4.0 cm LAIDs Index: 2.21 1.5-2.3 cm/m2 LV Mass: 202.75 67-162/88-224 g LV Mass Index: 117.88 43-95/49-115 g/m2 LVOT Diam: 2.10 3.0+(-)1.3 cm 2D Systolic Function EF 4C: 51.90 >55% EF 2C: 51.70 >55% EF BiP: 51.30 >55% Mitral Valve MV Pk E: 0.78 MV PK A: 0.94 MV Decel Time: 247.00 E/A: 0.80 E'Lateral: 6.74 E'Medial: 4.90 E/E' Med: 16.00 E/E' Lat: 11.60 PHT: 72.00 MVA PHT: 3.06 Decel [place]: 3.17 Aortic Valve AoV Pk Casey: 3.24 AoV Mn Casey: 2.39 AoV VTI: 0.72 AoV Pk Grad: 42.00 Aov Mn Grad: 25.00 DOUG Cont.VTI: 1.06 LVOT LVOT Pk Casey: 0.81 LVOT Mn Casey: 0.54 LVOT VTI: 0.22 LVOT Pk Grad: 3.00 LVOT Mn Grad: 1.00 LVOT Diam: 2.10 LVOT Area: 3.46 Diastolic Function MV Pk E: 0.78 MV Pk A: 0.94 E/A: 0.80 E'Medial: 4.90 E/E' Med: 16.00 E' Laterial: 6.74 E/E' Lat: 11.60 Right Ventricle TAPSE (mm): 24.40 TVS' Casey: 17.30 Tricuspid Valve TR Pk Casey: 1.33 TR Pk Grad: 7.00 RA Press: 3.00 Great Vessels Aorta Sinus of Valsalva: 3.60 2.0-3.5 cm Ao Asc: 3.60 2.1-3.4 cm Ao Arch: 2.60 Updated in Other Vendor System with Status of Final Pan Rosales MD electronically signed on 03/29/2025 3:40:01 PM with status of Final
--- NOTE | 2025-03-29 09:48 | P.CONCA_ITS ---
History of Present Illness History of Present Illness Date of Service: 03/29/25 Requesting physician: Robert Hoffman Consult reason: shortness of breath and troponin elevation Chief complaint: Pneumonia Narrative: I was consulted to see Monty in cardiology consultation today for elevated cardiac biomarkers. Patient's said he mainly came to the hospital because he is having issues with the finger having pain and swelling. However on further questioning he said he has did have for the last week shortness of breath when he was doing heavy work, he works as floorer and was also getting cough and with cough and deep inspiration was getting some chest discomfort. He came to the hospital was noted to be hypoxemic yesterday without any clear etiology initially. EKGs not show any acute ischemic changes but showed QT prolongation. Subsequent workup showed elevated biomarkers but these are flat along with elevated BNP. Subsequent workup shows multifocal pneumonia. His viral panel is negative. Patient was then given treatment including IV antibiotics and had abscess drainage in his finger and says feels better. His oxygenation has improved. He was also given her a dose of Lasix yesterday. He does not have any chest pain and says breathing has improved since yesterday. He had no other symptoms of orthopnea, PND, leg edema. No exertional chest discomfort. He said he does drink alcohol but usually drinks 1-2 beer and never gets drunk. He has never had alcohol withdrawal. He has prior history of heroin use in his currently on methadone. He denies any prolonged palpitation, irregular heartbeat. Review of Systems 2 Constitutional: Constitutional: Reports no additional constitutional complaints Eyes: Eyes: Reports no additional eye complaints Cardiovascular: Cardiovascular: Denies chest pain, Denies syncope, Denies leg edema, Denies lightheadedness, Denies palpitations and Reports dyspnea on exertion Respiratory: Respiratory: Reports cough, Reports pain on inspiration, Reports pain with cough and Reports dyspnea on exertion Gastrointestinal: Gastrointestinal: Reports no additional gastrointestinal complaints Genitourinary: Genitourinary: Reports no additional male genitourinary complaints Musculoskeletal: Musculoskeletal: Reports other (Finger discomfort) Integumentary/Breasts: Skin/Breast: Reports system reviewed and no additional complaints, except as docu Neurologic: Denies syncope Psychiatric: Psychiatric: Reports no additional psychiatric complaints Endocrine: Endocrine: Denies palpitations [facility] Social History Social History Alcohol intake: current Alcohol intake frequency: 0-2 drinks per day Alcohol type: beer Smoked in Last 30 Days: No Use of substances other than those prescribed or required for medical reasons: No Advance Directives: No Advance Directives Information Provided: No Meds Allergies Allergy/AdvReac Type Severity Reaction Status Date / Time No Known Allergies Allergy Verified 03/28/25 18:04 Active Medications: Current Medications Acetaminophen (Acetaminophen 325 Mg Tablet) 975 mg PO Q6H PRN PRN Reason: Pain, Mild 1-3,fever,headache Albuterol Sulfate (Albuterol Sulfate (0.083%) 2.5 Mg/3 Ml Vial.Neb) 2.5 mg INHALE Q2H PRN PRN Reason: Shortness of Breath/Wheezing Albuterol/Ipratropium (Albuterol/Iprat 2.5/0.5mg 3 Ml Ampul.Neb) 3 ml INHALE RQ4H WHILE AWAKE [facility] Last Admin: 03/29/25 08:06 Dose: 3 ml Doxycycline Monohydrate (Doxycycline Monohydrate 100 Mg Capsule) 100 mg PO Q12H [facility] Last Admin: 03/28/25 22:20 Dose: 100 mg Enoxaparin Sodium (Enoxaparin Sodium 40 Mg/0.4 Ml Syringe) 40 mg SUBCUT Q24H [facility] Last Admin: 03/28/25 21:20 Dose: 40 mg Piperacillin Sod/Tazobactam (Sod 3.375 gm/ Sodium Chloride) 50 mls @ 100 mls/hr IV Q6H [facility] Last Admin: 03/29/25 09:31 Dose: 100 mls/hr Methadone HCl (Methadone Hcl 20 Mg/2 Ml Oral.Conc) 75 mg PO DAILY@0800 [facility] Methylprednisolone Sodium Succinate (Methylprednisolone Sod Succ 40 Mg/Ml Vial) 40 mg IVPUSH Q12H [facility] Last Admin: 03/29/25 07:56 Dose: 40 mg Potassium Chloride (Potassium Chloride Packet 20 Meq Packet) 40 meq PO Q2H [facility] Stop: 03/29/25 10:01 Last Admin: 03/29/25 07:56 Dose: 40 meq Sodium Chloride (0.9 % Sodium Chloride Flush 3 Ml Syringe) 3 ml IVFLUSH QSHIFT [facility] Last Admin: 03/29/25 07:24 Dose: Not Given Thiamine HCl (Thiamine Hcl 100 Mg Tablet) 100 mg PO DAILY [facility] Last Admin: 03/29/25 07:56 Dose: 100 mg Home Medications ?Medication ?Instructions ?Recorded ?Confirmed ?Last Taken ?Type methadone 10 mg tablet 75 mg PO DAILY 03/28/25 03/28/25 History Physical Exam 2 Vital Signs: Vital Signs: Last Vital Signs Temp 98.0 F 03/29/25 09:32 Pulse 65 03/29/25 09:32 Resp 16 03/29/25 09:32 BP 149/82 H 03/29/25 09:32 Pulse Ox 93 03/29/25 09:32 O2 Del Method Room Air 03/29/25 09:32 O2 Flow Rate 3 03/29/25 07:03 BMI result Body Mass Index 25.2 Const: General: cooperative, comfortable, no acute distress, well developed and alert Nutritional Appearance: average body habitus and well nourished Orientation/consciousness: patient oriented x3 Limitations: no limitations HEENT: Head: Yes normocephalic and Yes atraumatic Neck: Neck: Yes trachea midline, Yes supple and Yes no JVD Resp: Effort & Inspection: normal respiratory effort Auscultation: clear to auscultation bilaterally Cardio: Jugular venous distension: no JVD Palpation: normal PMI Rate: r egular rate Rhythm: regular rhythm Heart sounds: S1 normal heart sound present, S2 normal heart sound present, no click, no gallops and no murmurs GI: Auscultation: normal bowel sounds Skin: General skin exam: no rashes or lesions noted Neuro: General: patient oriented x3 and no focal motor deficits Extrem: General: Yes no clubbing, cyanosis or edema Psych: Appearance: grossly normal Objective Labs and Meds 03/29/25 03:54 03/29/25 03:54 Lab results: Laboratory Results - last 24 hr 03/28/25 03/28/25 03/28/25 18:31 19:51 20:13 WBC 10.6 RBC 4.24 L Hgb 14.1 Hct 42.0 MCV 99.1 H MCH 33.3 H MCHC 33.6 RDW 12.4 Plt Count 166 MPV 9.9 Immature Gran % (Auto) 0.8 H Neut % (Auto) 79.4 H Lymph % (Auto) 10.1 L [place] % (Auto) 9.3 Eos % (Auto) 0.1 Baso % (Auto) 0.3 Lymph # (Auto) 1.1 L [place] # (Auto) 1.0 Eos # (Auto) 0.0 Baso # (Auto) 0.0 Abs Immat Gran (auto) 0.08 H Absolute Neuts (auto) 8.4 H Absolute Nucleated RBC 0.000 Nucleated RBC % (auto) 0.0 Smear Tech's Comments PT 13.6 H INR 1.2 H APTT 28.9 Sodium 139 Potassium 3.2 L Chloride 101 Carbon Dioxide 28 Anion Gap 13 BUN 17 H Creatinine 0.67 Estim Creat Clear Calc 96.9 Estimated GFR > 60 Random Glucose 88 Lactic Acid 2.3 H* Lactic Acid F/U @ 2Hr Lactic Acid F/U @ 4Hr Calcium 8.8 Magnesium 1.9 Total Bilirubin 2.2 H AST 49 H ALT 40 Alkaline Phosphatase 78 Total Creatine Kinase 192 H 196 H Troponin I High Sens 328.8 H* 355.7 H* B-Natriuretic Peptide 775 H Total Protein 8.8 H Albumin 3.5 Influenza Type A (PCR) NEGATIVE Influenza Type B (PCR) NEGATIVE RSV RNA Qual (PCR) NEGATIVE SARS-CoV-2 RNA (RT-PCR) NEGATIVE 03/28/25 03/29/25 03/29/25 22:07 00:40 03:54 WBC 8.1 RBC 3.97 L Hgb 13.4 L Hct 39.1 L MCV 98.5 H MCH 33.8 H MCHC 34.3 RDW 12.2 Plt Count 179 MPV 10.0 Immature Gran % (Auto) 0.5 H Neut % (Auto) 93.6 H Lymph % (Auto) 3.1 L [place] % (Auto) 2.7 Eos % (Auto) 0.0 Baso % (Auto) 0.1 Lymph # (Auto) 0.3 L [place] # (Auto) 0.2 Eos # (Auto) 0.0 Baso # (Auto) 0.0 Abs Immat Gran (auto) 0.04 H Absolute Neuts (auto) 7.5 Absolute Nucleated RBC 0.000 Nucleated RBC % (auto) 0.0 Smear Tech's Comments VERIFIED PT INR APTT Sodium 138 Potassium 3.2 L Chloride 98 Carbon Dioxide 27 Anion Gap 16 BUN 19 H Creatinine 0.71 Estim Creat Clear Calc 91.4 Estimated GFR > 60 Random Glucose 116 H Lactic Acid Lactic Acid F/U @ 2Hr 2.8 H* Lactic Acid F/U @ 4Hr 1.4 Calcium 8.7 Magnesium Total Bilirubin AST ALT Alkaline Phosphatase Total Creatine Kinase Troponin I High Sens 250.2 H* B-Natriuretic Peptide Total Protein Albumin Influenza Type A (PCR) Influenza Type B (PCR) RSV RNA Qual (PCR) SARS-CoV-2 RNA (RT-PCR) EKG shows normal sinus rhythm with QT prolongation with isolated Q-waves in lead 3 Assessment and Plan (1) Hypoxemia: Status: Acute Patient presents with hypoxemia due to multifocal pneumonia. There was no clinical evidence of congestive heart failure although BNP is elevated. He did receive a dose of Lasix yesterday given his elevated BNP. Clinically does not appear to be in heart failure. Would suggest an echocardiogram to evaluate for cardiac function. (2) Elevation of cardiac enzymes: Status: Acute Elevated cardiac markers with flat troponins. This could be related to hypoxemia with subendocardial ischemia and/or myocarditis is a possibility given his multifocal pneumonia as well as pleuritic chest pain. Less likely that this represents acute coronary syndrome has has no clear other evidence and symptoms suggestive of myocardial ischemia and negative EKG. Obtain an echocardiogram to assess for LV systolic function. Elevated BNP also could be related to hypoxemia with RV strain. Clinically not in heart failure. Could also be secondary to myocarditis. Obtain echocardiogram to evaluate LV systolic function and to evaluate for wall motion abnormality. Further treatment based on the findings. Continue supportive care. He has no indication for IV heparin. Advised to abstain from alcohol. Will follow if need be. Thank you for allowing me to partake in his care Procedures Date of Service Date of Service: 03/29/25
--- NOTE | 2025-03-29 10:09 | HE.PHANOTE ---
RE: METHADONE DOSING Patient received methadone 75 mg at [facility] [phone] on 03/24/25 AM with 6 take home doses per [place]. Patient last took his take home dose on 03/28/25 around 5am per nurse Jackie Murillo.
[2025-03-29] MEDS: Doxycycline Monohydrate 100 MG CAPSULE PO ×2 (10:42→22:09)
[2025-03-29] MEDS: methADONE HCl 20 MG/2 ML ORAL.CONC 75 MG PO (10:43)
--- NOTE | 2025-03-29 12:00 | P.PNIM_ITS ---
Subjective Subjective Date of Service: 03/29/25 Interval History: Seen and evaluated this morning Feels better No more SOB QTc improved no other events Review of Systems Review of Systems: Yes all other systems are reviewed and are negative Physical Exam 2 Vital Signs: Vital Signs: Last Vital Signs Temp 98.0 F 03/29/25 09:32 Pulse 66 03/29/25 11:39 Resp 16 03/29/25 11:39 BP 149/82 H 03/29/25 09:32 Pulse Ox 93 03/29/25 09:32 O2 Del Method Room Air 03/29/25 09:32 O2 Flow Rate 3 03/29/25 07:03 BMI result Body Mass Index 25.2 Const: Other: Constitutional : interactive, not in distress Cardiovascular : no JVP, no lower extremity edema Respiratory : bilateral chest movement, not in resp distress Gastrointestinal: soft, lax, Non tender Skin : Warm, Dry Neurological : Alert & oriented , No focal deficit Objective Data Active Medications Acetaminophen (Acetaminophen 325 Mg Tablet) 975 mg PO Q6H PRN PRN Reason: Pain, Mild 1-3,fever,headache Albuterol Sulfate (Albuterol Sulfate (0.083%) 2.5 Mg/3 Ml Vial.Neb) 2.5 mg INHALE Q2H PRN PRN Reason: Shortness of Breath/Wheezing Albuterol/Ipratropium (Albuterol/Iprat 2.5/0.5mg 3 Ml Ampul.Neb) 3 ml INHALE RQ4H WHILE AWAKE [facility] Last Admin: 03/29/25 11:37 Dose: 3 ml Documented By: GENNY Doxycycline Monohydrate (Doxycycline Monohydrate 100 Mg Capsule) 100 mg PO Q12H [facility] Last Admin: 03/29/25 10:42 Dose: 100 mg Documented By: CARLOS A Enoxaparin Sodium (Enoxaparin Sodium 40 Mg/0.4 Ml Syringe) 40 mg SUBCUT Q24H [facility] Last Admin: 03/28/25 21:20 Dose: 40 mg Documented By: ISA Piperacillin Sod/Tazobactam (Sod 3.375 gm/ Sodium Chloride) 50 mls @ 100 mls/hr IV Q6H [facility] Last Infusion: 03/29/25 10:05 Dose: Infused Documented By: CARLOS A Methadone HCl (Methadone Hcl 20 Mg/2 Ml Oral.Conc) 75 mg PO DAILY@0800 [facility] Last Admin: 03/29/25 10:43 Dose: 75 mg Documented By: CARLOS A Co-signed By: JUSTINA Methylprednisolone Sodium Succinate (Methylprednisolone Sod Succ 40 Mg/Ml Vial) 40 mg IVPUSH Q12H [facility] Last Admin: 03/29/25 07:56 Dose: 40 mg Documented By: JUSTINA Sodium Chloride (0.9 % Sodium Chloride Flush 3 Ml Syringe) 3 ml IVFLUSH QSHIFT [facility] Last Admin: 03/29/25 07:24 Dose: Not Given Documented By: CARLOS A Non-Admin Reason: Patient Asleep Thiamine HCl (Thiamine Hcl 100 Mg Tablet) 100 mg PO DAILY [facility] Last Admin: 03/29/25 07:56 Dose: 100 mg Documented By: JUSTINA Labs 03/29/25 03:54 03/29/25 03:54 Labs: Laboratory Results - last 24 hr 03/28/25 03/28/25 03/28/25 18:31 19:51 20:13 MCV 99.1 H MCH 33.3 H MCHC 33.6 RDW 12.4 Plt Count 166 MPV 9.9 Immature Gran % (Auto) 0.8 H Neut % (Auto) 79.4 H Lymph % (Auto) 10.1 L [place] % (Auto) 9.3 Eos % (Auto) 0.1 Baso % (Auto) 0.3 Lymph # (Auto) 1.1 L [place] # (Auto) 1.0 Eos # (Auto) 0.0 Baso # (Auto) 0.0 Abs Immat Gran (auto) 0.08 H Absolute Neuts (auto) 8.4 H Absolute Nucleated RBC 0.000 Nucleated RBC % (auto) 0.0 Smear Tech's Comments PT 13.6 H INR 1.2 H APTT 28.9 Anion Gap 13 Estim Creat Clear Calc 96.9 Estimated GFR > 60 Random Glucose 88 Lactic Acid 2.3 H* Lactic Acid F/U @ 2Hr Lactic Acid F/U @ 4Hr Calcium 8.8 Magnesium 1.9 Total Bilirubin 2.2 H AST 49 H ALT 40 Alkaline Phosphatase 78 Total Creatine Kinase 192 H 196 H Troponin I High Sens 328.8 H* 355.7 H* B-Natriuretic Peptide 775 H Total Protein 8.8 H Albumin 3.5 Influenza Type A (PCR) NEGATIVE Influenza Type B (PCR) NEGATIVE RSV RNA Qual (PCR) NEGATIVE SARS-CoV-2 RNA (RT-PCR) NEGATIVE 03/28/25 03/29/25 03/29/25 22:07 00:40 03:54 MCV 98.5 H MCH 33.8 H MCHC 34.3 RDW 12.2 Plt Count 179 MPV 10.0 Immature Gran % (Auto) 0.5 H Neut % (Auto) 93.6 H Lymph % (Auto) 3.1 L [place] % (Auto) 2.7 Eos % (Auto) 0.0 Baso % (Auto) 0.1 Lymph # (Auto) 0.3 L [place] # (Auto) 0.2 Eos # (Auto) 0.0 Baso # (Auto) 0.0 Abs Immat Gran (auto) 0.04 H Absolute Neuts (auto) 7.5 Absolute Nucleated RBC 0.000 Nucleated RBC % (auto) 0.0 Smear Tech's Comments VERIFIED PT INR APTT Anion Gap 16 Estim Creat Clear Calc 91.4 Estimated GFR > 60 Random Glucose 116 H Lactic Acid Lactic Acid F/U @ 2Hr 2.8 H* Lactic Acid F/U @ 4Hr 1.4 Calcium 8.7 Magnesium Total Bilirubin AST ALT Alkaline Phosphatase Total Creatine Kinase Troponin I High Sens 250.2 H* B-Natriuretic Peptide Total Protein Albumin Influenza Type A (PCR) Influenza Type B (PCR) RSV RNA Qual (PCR) SARS-CoV-2 RNA (RT-PCR) Microbiology Microbiology Results: Microbiology 03/28/25 21:53 Gram Stain - Final Finger Left Middle Routine Culture - Preliminary Culture in progress. Assessment and Plan (1) Elevation of cardiac enzymes: Status: Acute (2) Hypoxemia: Status: Acute (3) Prolonged QT interval: Status: Acute (4) Hypokalemia: Status: Acute (5) Alcohol abuse: Status: Acute (6) Multifocal pneumonia: Status: Acute Plan Monty Mendoza is a 59 y/o man admitted with: Acute Hypoxic respiratory failure secondary to multifocal pneumonia Improving Wean supplemental O2 to keep O2 sats > 90%. Continue Zosyn and Doxycycline bronchodilator therapy and IV steroids to wean down Elevated BNP and troponin, no chest pain overnight Hold on more lasix check TTE. Cardiology input appreciated, Elevated cardiac markers with flat troponins. This could be related to hypoxemia with subendocardial ischemia and/or myocarditis is a possibility given his multifocal pneumonia as well as pleuritic chest pain. Acute Hypokalemia, Replete as needed. Continue to monitor. Left middle finger abscess D&C per ED provider Apply warm compresses doxycycline 100 mg PO bid for MRSA coverage. History of opiate disorder. On methadone 75 mg PO daily. Prolonged QT, QTc improved to 520 Alcohol intoxication. ETOH level 289 on presentation. CIWA. Thiamine, folic acid and multivitamins. advised to abstain from alcohol consumption. Code status: Full DVT prophylaxis: Lovenox. Patient will need hospitalization for overnight for hypoxic respiratory treatment with supplemental oxygen, IV antibiotics and bronchodilator therapy. Quality Stroke Does the patient have a stroke diagnosis?: No VTE Prior VTE?: No VTE Risk Level:: Medical - moderate - high VTE Device Contraindication: Treatment Not Indicated VTE Drug Contraindication: N/A - Med Ordered
--- NOTE | 2025-03-29 12:10 | MHC.CM.PN ---
Pt. lives with his S.O., he does not have a PCP, brochure and # for C given. HCP discussed, he will complete form here and it will be added to chart. He does not have home health services, or use DME. He goes to the Methadone clinic on [address] in [place]. Transportation home is via [facility]. DCP: home, self care, CM to follow for DC needs.
[2025-03-29] MEDS: Enoxaparin Sodium 40 MG/0.4 ML SYRINGE SUBCUT (22:09)
[2025-03-29] MEDS: 0.9 % Sodium Chloride Flush 3 ML SYRINGE IVFLUSH (22:23)
[2025-03-29] MEDS: ondansetron HCL 4 MG/2 ML VIAL IVPUSH (23:32)
[2025-03-30 03:11] VITALS: BP 153/86; PULSE 69; RESP 18; TEMP 37.1; O2SAT 96
[2025-03-30] MEDS: Piperacillin Sodium/Tazobactam 3.375 GM in 0.9 % Sodium Chloride 50 ML IV ×2 (03:22→07:32)
[2025-03-30 07:23] VITALS: BP 132/78; PULSE 69; RESP 18; TEMP 36.3; O2SAT 93
[2025-03-30] MEDS: Thiamine HCL 100 MG TABLET PO (07:32)
[2025-03-30] MEDS: methADONE HCl 20 MG/2 ML ORAL.CONC 75 MG PO (07:32)
[2025-03-30] MEDS: 0.9 % Sodium Chloride Flush 3 ML SYRINGE IVFLUSH (07:32)
[2025-03-30 07:33] LABS: MANUAL DIFF FLAG NO
[2025-03-30] MEDS: Albuterol/Iprat 2.5/0.5MG 3 ML AMPUL.NEB INHALE ×2 (07:42→11:26)
[2025-03-30 07:44] VITALS: PULSE 70; RESP 16; O2SAT 93
[2025-03-30 07:47] LABS: Basophils Percent Auto 0.1 % (0-2); Hematocrit 39.4 % (42.0-52.0); Hemoglobin 13.2 g/dl (14.0-18.0); Imm Gran Abs Auto 0.05 X10*3/uL (0.00-0.03); Imm Gran Pct Auto 0.5 % (0.0-0.4); Lymphocytes Absolute Auto 1.1 X10*3/uL (1.2-4.9); Lymphocytes Percent Auto 11.1 % (20-40); Mean Corpuscular HGB Conc 33.5 g/dl (31.0-36.0); Mean Corpuscular Hemoglobin 33.1 pg (27.0-33.0); Mean Corpuscular Volume 98.7 fL (80.0-98.0); Monocytes Percent Auto 10.2 % (2-11); Neutrophils Absolute Auto 7.4 x10*3/uL (2.0-8.3); Neutrophils Percent Auto 78.1 % (45-73); Platelet Count 187 X10*3/uL (160-400); Red Blood Count 3.99 X10*6/uL (4.60-5.80); White Blood Count 9.5 X10*3/uL (4.8-10.8)
[2025-03-30 07:58] LABS: Anion Gap 11 (12-20); Blood Urea Nitrogen 19 mg/dL (9-16); Calcium 8.8 mg/dL (8.4-10.2); Carbon Dioxide 31 mmol/L (22-29); Chloride 99 mmol/L (96-108); Creatinine Clr Calc Pharmacy 95.5; Estimated Glomerular Filt Rate > 60; Glucose Random 102 mg/dL (60-115); Sodium 137 mmol/L (135-145)
[2025-03-30 09:09] LABS: B Type Natriuretic Peptide 304 pg/mL (<100)
--- NOTE | 2025-03-30 10:16 | PM.PNCARD ---
Subjective Subjective Date of Service: 03/30/25 Principal diagnosis: Elevated cardiac biomarkers Interval history: Patient currently not having any symptoms. Echo showed low normal LV EF without any regional wall motion abnormality. Shows however moderate to severe aortic stenosis. Patient not aware of it. Not having any chest pain or shortness of breath. No leg edema. Review of Systems Constitutional: Reports no additional constitutional complaints Eyes: Reports no additional eye complaints Cardiovascular: Denies chest pain and Denies dyspnea Respiratory: Reports no additional respiratory complaints and Denies dyspnea Musculoskeletal: Reports no additional musculoskeletal complaints Skin/Breast: Reports system reviewed and no additional complaints, except as docu Reports system reviewed and no additional complaints, except as documented Psychiatric: Reports no additional psychiatric complaints Physical Exam Vital Signs: Last Vital Signs Temp 97.4 F 03/30/25 07:23 Pulse 70 03/30/25 07:44 Resp 16 03/30/25 07:44 BP 132/78 03/30/25 07:23 Pulse Ox 93 03/30/25 07:23 O2 Del Method Room Air 03/30/25 07:23 O2 Flow Rate 3 03/29/25 07:03 BMI result Body Mass Index 25.2 Const General: cooperative, comfortable, no acute distress, well developed and alert Nutritional Appearance: average body habitus and well nourished Orientation/consciousness: patient oriented x3 Limitations: no limitations HEENT Head: Yes normocephalic and Yes atraumatic Neck Neck: Yes trachea midline, Yes supple and Yes no JVD Resp Effort & Inspection: normal respiratory effort Auscultation: clear to auscultation bilaterally Cardio Jugular venous distension: no JVD Palpation: normal PMI Rate: regular rate Rhythm: regular rhythm Heart sounds: S1 normal heart sound present, S2 normal heart sound present, no click, no gallops and Murmur heart sound present systolic GI Auscultation: normal bowel sounds Skin General skin exam: no rashes or lesions noted Neuro General: patient oriented x3 and no focal motor deficits Extrem General: Yes no clubbing, cyanosis or edema Psych Appearance: grossly normal Objective Labs and Meds 03/30/25 07:09 03/30/25 07:09 Lab results: Laboratory Results - last 24 hr 03/30/25 07:09 WBC 9.5 RBC 3.99 L Hgb 13.2 L Hct 39.4 L MCV 98.7 H MCH 33.1 H MCHC 33.5 RDW 12.0 Plt Count 187 MPV 10.0 Immature Gran % (Auto) 0.5 H Neut % (Auto) 78.1 H Lymph % (Auto) 11.1 L [place] % (Auto) 10.2 Eos % (Auto) 0.0 Baso % (Auto) 0.1 Lymph # (Auto) 1.1 L [place] # (Auto) 1.0 Eos # (Auto) 0.0 Baso # (Auto) 0.0 Abs Immat Gran (auto) 0.05 H Absolute Neuts (auto) 7.4 Absolute Nucleated RBC 0.000 Nucleated RBC % (auto) 0.0 Sodium 137 Potassium 4.0 D Chloride 99 Carbon Dioxide 31 H Anion Gap 11 L BUN 19 H Creatinine 0.68 Estim Creat Clear Calc 95.5 Estimated GFR > 60 Random Glucose 102 Calcium 8.8 B-Natriuretic Peptide 304 H Progress Note: A&P Assessment and plan (1) Elevation of cardiac enzymes: Status: Acute Assessment and Plan: Elevated cardiac biomarkers most likely related to significant hypoxemia in the setting of underlying aortic stenosis. Patient clinically doing well. No signs of heart failure at this point time. Continue treat his underlying pneumonia. Supportive care. Advised to avoid strenuous exertion. Will follow up with stress testing as outpatient to rule out any obstructive coronary artery disease as an outpatient. This would probably be performed in the next 4 weeks or so. I would consider aspirin and statin therapy for him. (2) Aortic stenosis: Status: Acute Assessment and Plan: Aortic stenosis which by echocardiogram appears to be moderately severe. Aspirin and statin as above. Currently does not require any intervention although will require close follow-up. Will follow up in the clinic after stress testing. Thank you for allowing me to partake in his care Time Spent With Patient Time: Total time managing care of this patient today ____ minutes. Progress Note: Quality Stroke Does the patient have a stroke diagnosis?: No Procedures Date of Service Date of Service: 03/30/25
[2025-03-30 11:20] VITALS: BP 112/68; PULSE 70; RESP 15; TEMP 36.8; O2SAT 94
[2025-03-30 11:28] VITALS: PULSE 70; RESP 16
--- NOTE | 2025-03-30 12:18 | P.DS_ITS ---
DS: Providers Provider Date of Service: 03/30/25 Date of admission: 03/28/25 20:49 Date of discharge: 03/30/25 Primary care physician: None Physician Consults: 03/28/25 21:47 Consult to Cardiology Routine Consulting Provider: [facility] Reason for consultation: Elevated troponin and BNP Has provider been notified: Yes DS: Diagnosis Discharge Diagnosis (1) Elevation of cardiac enzymes: Status: Acute (2) Aortic stenosis: Status: Acute (3) Hypoxemia: Status: Acute (4) Prolonged QT interval: Status: Acute (5) Hypokalemia: Status: Acute (6) Alcohol abuse: Status: Acute (7) Multifocal pneumonia: Status: Acute DS: Summary Hospital Course Hospital Course: Admission note HPI Monty Mendoza is a 59 years old man with past medical history significant for substance abuse on methadone presents to the emergency department complaining of left middle finger swelling and pain that started her week ago. He denied any trauma. He also complained of worsening shortness of breath over the last week associated with dry cough. He denied any nasal congestion, headache, fever, chills, abdominal pain, nausea, vomiting, diarrhea or dizziness. He drinks alcohol every day. Last alcoholic drink was today. He denied tobacco smoking. He does not use illicit drugs anymore. He denied history of hypertension, diabetes mellitus, heart disease or renal disease. In the ED, he was found to have oxygen saturation 89 % on room air. He is currently requiring 2 L/min supplemental oxygen via nasal cannula. There is no leukocytosis. CBC is normal. There is mild hypokalemia of 3.2 but no other electrolyte imbalances. BUN 17 and creatinine 0.67. Troponin is elevated at 328.8 --> 355.7 and BNP 775. Bilirubin is 2.2, AST 49, ALT 40 alk-phos 78. ETOH level 289. Viral testing for COVID-19, influenza and RSV is negative. CXR showed new pulmonary opacity concerning for pneumonitis/known ammonia particularly in the right lung. Chest CTA showed multifocal airspace disease concerning for multifocal pneumonia, mediastinal lymphadenopathy and no central pulmonary embolism. ECG showed normal sinus rhythm, prolonged QT and no ischemic changes. ED tx: Azithromycin 500 mg p.o. ceftriaxone 1 g IV, Avngie 40 mg IV Hospital course The patient was treated for the following: # Acute Hypoxic respiratory failure secondary to multifocal pneumonia as chest images showed bilateral infiltrates. Improving, Weaned supplemental O2 to room air with good tolerance as he was treated with Zosyn and Doxycycline. To continue Augmentin and Doxycycline for 1 more week. # Elevated BNP and troponin, no chest pain or EKG changes. Likely related to hypoxia event. Evaluated by Cardiology who thought Elevated cardiac markers with flat troponins could be related to hypoxemia with subendocardial ischemia. Echo was done showing normal EF with no WMA and evidence of moderate-severe Aortic stenosis. # Acute Hypokalemia, Repleted # Left middle finger abscess. D&C per ED provider. Apply warm compresses. on Doxycycline and Augmentin on discharge. # Prolonged QT, QTc improved to 520, restarted MEthadone home dose # Alcohol abuse and intoxication. with ETOH level 289 on presentation. CIWA monitoring and advised to quit drinking alcohol. He agrees. # Mediastinal and hilar adenopathy on CT scan. Recommend 3 to six-month follow- up to ensure resolution. Discharge plan Start Aspirin and Atorvastatin as prescribed Avoid strenous exercise Avoid Drinking Alcohol Follow with Cardiology in 4 weeks for stress testing Continue Antibiotics as prescribed Follow with PCP to repeat CT chest in 3 months for evaluation of lymphadenopathy of chest Time Attestation Discharge Coordination Time (in mins): 42 Quality: Safe Use of Opioids Does Pt have an Active Cancer Diagnosis on the Problem List?: No Quality: Stroke Does the patient have a stroke diagnosis?: No Physical Exam Vital Signs: Vital Signs: Last Vital Signs Temp 98.2 F 03/30/25 11:20 Pulse 70 03/30/25 11:28 Resp 16 03/30/25 11:28 BP 112/68 03/30/25 11:20 Pulse Ox 94 03/30/25 11:20 O2 Del Method Room Air 03/30/25 11:20 O2 Flow Rate 3 03/29/25 07:03 BMI result Body Mass Index 25.2 Const: Other: Constitutional : interactive, not in distress Cardiovascular : no JVP, no lower extremity edema Respiratory : bilateral chest movement, not in resp distress Gastrointestinal: soft, lax, Non tender Skin : Warm, Dry Neurological : Alert & oriented , No focal deficit DS: Data Data Completed and Pending Labs on day of discharge: Laboratory Results - last 24 hr 03/30/25 07:09 WBC 9.5 RBC 3.99 L Hgb 13.2 L Hct 39.4 L MCV 98.7 H MCH 33.1 H MCHC 33.5 RDW 12.0 Plt Count 187 MPV 10.0 Immature Gran % (Auto) 0.5 H Neut % (Auto) 78.1 H Lymph % (Auto) 11.1 L [place] % (Auto) 10.2 Eos % (Auto) 0.0 Baso % (Auto) 0.1 Lymph # (Auto) 1.1 L [place] # (Auto) 1.0 Eos # (Auto) 0.0 Baso # (Auto) 0.0 Abs Immat Gran (auto) 0.05 H Absolute Neuts (auto) 7.4 Absolute Nucleated RBC 0.000 Nucleated RBC % (auto) 0.0 Sodium 137 Potassium 4.0 D Chloride 99 Carbon Dioxide 31 H Anion Gap 11 L BUN 19 H Creatinine 0.68 Estim Creat Clear Calc 95.5 Estimated GFR > 60 Random Glucose 102 Calcium 8.8 B-Natriuretic Peptide 304 H Preliminary micro results at discharge 03/28/25 21:53 Routine Culture - Preliminary Finger Left Middle Staphylococcus aureus 03/28/25 19:51 Blood Culture - Preliminary Blood - Venous No growth after 24 hours. 03/28/25 19:51 Blood Culture - Preliminary Blood - Venous No growth after 24 hours. Imaging Chest x-ray: Radiologist's impression: IMPRESSION: 1. Multifocal airspace disease redemonstrated and concerning for multifocal pneumonia. Recommend attention on follow-up to ensure resolution. 2. Mediastinal and hilar lymphadenopathy is nonspecific and may be reactive. Recommend 3 to six-month follow-up to ensure resolution. 3. No central pulmonary embolism. Discharge Plan Discharge Anticipated Discharge Date/Time: 03/30/25 12:05 Patient Disposition: Home, Self-Care Discharge Diagnosis: Pneumonia Aortic stenosis Abscess finger Referrals: Physician,None [Primary Care Provider] - 1 Week Discharge Medications: New doxycycline monohydrate 100 mg Capsule 100 mg PO Q12H Qty: 14 0RF aspirin 81 mg tablet 81 mg PO DAILY Qty: 90 0RF atorvastatin 40 mg tablet 40 mg PO BEDTIME Qty: 90 0RF amoxicillin-pot clavulanate 875-125 mg tablet 1 tab PO BID Qty: 14 0RF Continued methadone 10 mg Tablet 75 mg PO DAILY Discharge Orders: Discharge Order (Routine); Ordered 03/30/25 Ordered By: Robert Hfofman Diet: Low fat, low cholesterol Activity on Discharge: As tolerated Stand Alone Forms: Patient Portal Discharge page Print Language: Latvian Care Plan Goals: Start Aspirin and Atorvastatin as prescribed Avoid strenous exercise Avoid Drinking Alcohol Follow with Cardiology in 4 weeks for stress testing Continue Antibiotics as prescribed Follow with PCP to repeat CT chest in 3 months for evaluation of lymphadenopathy of chest Health Concerns: Pneumonia Aortic valve stenosis Plan of Treatment: Antibiotics Aspirin, Statin Cardiology follow up Assessment: as above
--- NOTE | 2025-03-30 12:56 | MHC.CM.PN ---
Pt has been medically cleared for DC, he will go home via [facility] (bus passes given) plan is self care.
== END 2025-03-30 13:08 | disposition home or self-care (01) | DRG 139 ==
LOC: HO.ED 20:56 → HO.EDOVER 21:17 → HO.IMC 03-29 15:21
PROVIDERS: Physician Assistant; Admitting Provider Internal Medicine; Emergency Provider Emergency Medicine Emergency Medical Services; Visit Provider Student in an Organized Health Care Education/Training Program
DX: J18.9 Pneumonia, unspecified organism (principal); J96.01 Acute respiratory failure with hypoxia; L02.512 Cutaneous abscess of left hand; I96 Gangrene, not elsewhere classified; F11.20 Opioid dependence, uncomplicated; E87.6 Hypokalemia; I35.0 Nonrheumatic aortic (valve) stenosis; F10.129 Alcohol abuse with intoxication, unspecified; R94.31 Abnormal electrocardiogram [ECG] [EKG]; Y90.8 Blood alcohol level of 240 mg/100 ml or more; Z20.822 Contact with and (suspected) exposure to COVID-19
CPT/HCPCS: 0241U; 36415; 71045; 71275; 80048; 80053; 82550; 83605; 83735; 83880; 84484; 85025; 85610; 85730; 87040; 87070; 87077; 87186; 87205; 93005; 93306; 94640; 99285; J0696; J1650; J1938; J2003; J2405; J2543; J2919; J3360; Q9957

== ENCOUNTER → 2025-03-28 18:16 | Outpatient (BNV) | payer OTHER, SELFPAY | PROVIDERS: Emergency Provider Emergency Medicine Emergency Medical Services; Visit Provider Radiology Neuroradiology | DX: R59.0 Localized enlarged lymph nodes (principal); R91.8 Other nonspecific abnormal finding of lung field | CPT/HCPCS: 71045; 71275 ==

== ENCOUNTER 2025-03-28 20:49 | Outpatient (BNV) | payer OTHER, SELFPAY | END 2025-03-29 06:00 | PROVIDERS: Admitting Provider Internal Medicine; Emergency Provider Emergency Medicine Emergency Medical Services; Visit Provider Internal Medicine Cardiovascular Disease | DX: I35.0 Nonrheumatic aortic (valve) stenosis (principal); I34.0 Nonrheumatic mitral (valve) insufficiency; R94.31 Abnormal electrocardiogram [ECG] [EKG] | CPT/HCPCS: 93010; 93306 ==

== ENCOUNTER → 2025-03-28 20:49 | Outpatient (BNV) | payer OTHER, SELFPAY | PROVIDERS: Admitting Provider Internal Medicine; Emergency Provider Emergency Medicine Emergency Medical Services; Visit Provider Internal Medicine Cardiovascular Disease | DX: R74.8 Abnormal levels of other serum enzymes (principal); I35.0 Nonrheumatic aortic (valve) stenosis | CPT/HCPCS: 93010; 99222; 99233 ==

== ENCOUNTER → 2025-03-28 20:49 | Outpatient (BNV) | payer OTHER, SELFPAY | PROVIDERS: Admitting Provider Internal Medicine; Emergency Provider Emergency Medicine Emergency Medical Services; Visit Provider Internal Medicine | DX: R74.8 Abnormal levels of other serum enzymes (principal); R09.02 Hypoxemia; R94.31 Abnormal electrocardiogram [ECG] [EKG]; E87.6 Hypokalemia; F10.10 Alcohol abuse, uncomplicated; J18.9 Pneumonia, unspecified organism | CPT/HCPCS: 99233 ==

== ENCOUNTER → 2025-06-23 07:54 | Outpatient (REF) | payer OTHER, SELFPAY ==
--- NOTE | ~2025-06-23 | NM_ITS ---
Lexiscan Myocardial perfusion study Indication: Elevated troponin Technique: The patient was brought in for a Lexiscan perfusion study on 06/23/2025 and was injected 0.4 mg of Lexiscan intravenously. Within a minute of this injection 25 mCi of sestamibi was given intravenously. Images were obtained using the SPECT gamma camera interlaced with the gating device. Images were obtained in supine position. Resting perfusion was not performed as patient did not return. Images were processed with the software and compared side to side in short axis, horizontal long axis and vertical long axis views. Findings: Raw aquisition reviewed. The stress perfusion study showed no significant perfusion abnormality both uncorrected as well as CT attenuation corrected images were reviewed. The gated study shows diminished LV systolic function with calculated LVEF of 43%. LV cavity is mildly dilated in size. The gated study shows normal wall thickening and contraction of segments. The findings are consistent with grossly normal perfusion during stress. NM/NM cardiolite stress test Impression: 1. Myocardial perfusion imaging study shows no overt perfusion normality in the stress only images. . Patient did not return resting acquisition. 2. Gated LVEF is 43% during stress. Correlate with echocardiogram. EKG component of the test reported separately. Electronically signed by: Jam Holguin MD 07/19/2025 10:58 AM EDT
--- OUTSIDE RECORDS SUMMARY | 2025-06-23 07:57 | XMS_ITS | Clinical Summary ---
Author Organization [employer] Address [address] [place] [address] Care Team Providers Care Geodetic Advisor Name Role Phone Belkis Pack MD Primary Care Pro vider Allergies No known active allergies Medications methadone (Dolophine) 10 MG/ML solution Take 75 mg by mouth Once per day. Active Active Problems Problem Noted Date Diagnosed Date Abscess of left middle finger 03/29/2025 Assessment & Plan (03/29/2025 5:38 AM EDT): Noted significant swelling over left middle finger DIP with erythema, increased skin temperature and noted soft induration over joint with apparent purulence inside, not draining. Patient has difficulty moving joint. No skin breakdowns noted in finger Concern with septic arthritis and has an abscess that needs to be drained so advised to go to the emergency department as well will need to be rule out for osteomyelitis. Patient agreed to go today to the ED to have further evaluation and management. I called [facility] and inform about patient going there. History of hepatitis C 03/29/2025 Assessment & Plan (03/29/2025 5:36 AM EDT): Hx of hep C per pt was told to be active and not tx dxed 3 y ago I will do initial labs and if confirmed active hep C infection we will referred to [facility] to start treatment Request today new patient appointment as well to get PCP will need further evaluation for possible rheumatoid arthritis. Opioid use disorder 03/29/2025 Encounters Date Type Department Care Team Description 04/17/2025 Telephone [facility] [address] [place] [id number] Belkis Pack MD recall sep. 04/07/2025 Telephone [facility] [address] [place] [address] Belkis Pack MD Appointment 03/29/2025 Telephone [facility] [address] [place] [address] Belkis Pack MD 03/28/2025 1:00 PM EDT Office Visit [facility] [address] [place] [address] Belkis Pack MD History of hepatitis C (Primary Dx); Abscess of left middle finger; Opioid use disorder 03/28/2025 Travel from Last 3 Months Social History Tobacco Use Types Packs/Day Years Used Date Smoking Tobacco: Never Assessed Sex and Gender Information Value Date Recorded Sex Assigned at Male 08/18/2022 10:21 AM EDT Legal Sex Male 10:21 AM EDT Gender Identity Male 08/18/2022 10:21 AM EDT Sexual Orientation Choose not to disclose 2021 10:21 AM EDT Last Filed Vital Signs Vital Sign Reading Time Taken Comments Blood Pressure 129/69 03/28/2025 12:59 PM EDT Pulse 75 03/28/2025 12:59 PM EDT Temperature 36.7 C (98 F) 03/28/2025 12:59 PM EDT Respiratory Rate 17 03/28/2025 12:59 PM EDT Oxygen Saturation 98% 03/28/2025 12:59 PM EDT Inhaled Oxygen Concentration - - Weight 66.8 kg (147 lb 3.2 oz) 03/28/2025 12:59 PM EDT Height 160 cm (5' 3 ) 09/02/2021 12:11 AM EST Body Mass Index 26.08 09/02/2021 12:11 AM EST Plan of Treatment Health Maintenance Due Date Last Done Comments CT Colonography 1963 Colonoscopy 1963 Colorectal Cancer Screening 1963 Depression Screening 1963 FIT DNA/Cologuard 1963 FIT 1963 FOBT 1963 HIV Screening 1963 SDOH Screening 1963 Sigmoidoscopy 1963 Disability Screening 1963 Alcohol/Substance Use Screening 1975 Tobacco Screening 1975 DTaP/Tdap/Td Vaccines (1 - Tdap) 1982 Hepatitis A Vaccines (1 of 2 - Risk 2-dose series) 1982 Pneumococcal Vaccine: 50+ Ye ars (1 of 1 - PCV) 2013 Zoster Vaccines (1 of 2) 2013 Hepatitis B Vaccines (1 of 3 - Risk 3-dose series) 2023 RSV Patients and Pa tients Aged 60 years or older (1 - Risk 60-74 years 1-dose series) 2023 COVID-19 Vaccine (1 - 2023-2 5 season) 2024 Influenza Vaccine (#1) 2025 Lipid Panel 08/16/2026 08/16/2021 HIB Vaccines Aged Out No longer eligi ble based on patient's age to complete this topic HPV Vaccines Aged Out No longer eligi ble based on patient's age to complete this topic IPV Vaccines Aged Out No longer eligi ble based on patient's age to complete this topic Meningococcal B Vaccine Aged Out No l onger eligible based on patient's age to complete this topic Meningococcal Vaccine Aged Out No yudi maura eligible based on patient's age to complete this topic RSV under 20 months Aged Out No longe r eligible based on patient's age to complete this topic Rotavirus Vaccines Aged Out No longer eligible based on patient's age to complete this topic Procedures Procedure Name Priority Date/Time Associated Diagnosis Comments LIPID PANEL, STANDARD Routine 08/16/2021 8:57 AM EDT from Last 3 Months or Most Recently Relevant to Health Maintenance Results * (ABNORMAL) LIPID PANEL, STANDARD (08/16/2021 8:57 AM EDT) Chol/HDLC Ratio 2.4 <5.0 (calc) [facility] Cholesterol, Total 261(H) <200 mg/dL [facility] HDL Cholesterol 108 > OR = 40 mg/dL [facility] LDL Cholesterol 139(H) mg/dL (calc) [facility] Comment: Reference range: <100 Desirable range <100 mg/dL for primary prevention; <70 mg/dL for patients with CHD or diabetic patients with > or = 2 CHD risk factors. LDL-C is now calculated using the Dov-Morin calculation, which is a validated novel method providing better accuracy than the Friedewald equation in the estimation of LDL-C. Dov SS et al. LUDWIN. 2013;310(19): 6793-3464 (http://education.[employer]/faq/VKW089) Non-HDL Cholesterol 153(H) <130 mg/dL (calc) [facility] Comment: For patients with diabetes plus 1 major ASCVD risk factor, treating to a non-HDL-C goal of <100 mg/dL (LDL-C of <70 mg/dL) is considered a therapeutic option. Triglycerides 52 <150 mg/dL [facility] 08/16/2021 8:57 AM EDT us Cindy Thomas MD LAB BLOOD ORDERABLES Final R esult [facility] [address] from Last 3 Months or Most Recently Relevant to Health Maintenance Insurance [employer] [address] [phone] Care Teams Geodetic Advisor Relationship Specialty Start Date End Date Belkis Pack MD [address] [place] [id number] PCP - General Internal Medicine 03/29/25
--- NOTE | 2025-06-23 08:03 | CA_ITS ---
Acquisition Time: 2025-06-23 08:11:38 Total Exercise Time: 00:02:00 Test Indications: ELEVATED TROPONIN,Dyspnea,Abnormal ECG Medications: METHADONE ASA ATORVASTATIN Protocol: LEXISCAN Max HR: 78 BPM 49% of Pred: 159 BPM Max BP: 140/86 mmHG Max Work Load: 1.0 METS Pharmacological stress test with Lexiscan while pt swings his legs in chair, with reports of feeling fatigued, no chest pain, without any arrythmias, with normotensive response to injection. Nondiagnostic EKG for ischemia. In recovery, pt feeling back to baseline. Nuclear images pending. Test reviewed with Dr. Terrazas. Referred By: Pan Rosales Electronically Signed By: Pawel Sanchez
== END ==
LOC: HO.CARD 07:54
PROVIDERS: Visit Provider Internal Medicine Cardiovascular Disease
DX: I50.9 Heart failure, unspecified (principal); I35.0 Nonrheumatic aortic (valve) stenosis; R74.8 Abnormal levels of other serum enzymes
CPT/HCPCS: 78452; 93017; A9500; J0280; J2785

== ENCOUNTER → 2025-06-23 08:03 | Outpatient (BNV) | payer OTHER, SELFPAY | DX: I50.9 Heart failure, unspecified (principal) | CPT/HCPCS: 78451; 93016; 93018 ==